=== PATIENT | female | born 2000 | race Caucasian/White ===

== ENCOUNTER 2020-04-28 11:51 | Inpatient (IN) | payer MEDICAID ==
[~2020-04-28] VITALS: Ht 154.9 cm; Wt 82.6 kg
[2020-04-28] MEDS: DEXT 5%/LR + PITOCIN 20UNITS/L 1,000 ML IV SCH ×2 (05:42→21:43)
[2020-04-28] MEDS ORDERED: METHYLERGONOVINE MALEATE 0.2 MG/ML IM PRN (14:15)
[2020-04-28] MEDS ORDERED: NALOXONE HCL 0.4 MG/ML 1ML VIAL IM PRN (14:15)
[2020-04-28 14:34] LABS: BASOPHILS % 0.2 % (0.0-2.0); EOSINOPHILS % 0.2 % (0.0-5.0); HEMATOCRIT. 31.9 % (36.0-48.0); HEMOGLOBIN. 10.7 g/dL (12.0-16.0); LYMPHOCYTES % 15.8 % (20.0-50.0); MEAN CORPUSCULAR HEMOGLOBIN 28.7 pg (28.0-32.0); MEAN CORPUSCULAR VOLUME 85.7 fL (81.0-99.0); MEAN PLATELET VOLUME 9.5 fl (7.4-10.4); MONOCYTES % 4.7 % (2.0-8.0); NEUTROPHILS % 79.1 % (40.0-76.0); PLATELET 136 x1000/uL (130-400); RED BLOOD CELL COUNT 3.73 mill/uL (4.2-5.4); RED CELL DISTRIBUTION WIDTH 17.1 % (11.6-14.6)
[2020-04-28 14:41] LABS: INR 0.9; PARTIAL THROMBOPLASTIN TIME 26.7 sec (23.4-31.0); PROTHROMBIN TIME 9.8 sec (9.6-11.0)
[2020-04-28] MEDS ORDERED: CITRIC ACID/SODIUM CITRATE SOLN 30ML UDC PO NR (15:00)
[2020-04-28 15:08] LABS: HEPATITIS B SURFACE ANTIGEN NEGATIVE
[2020-04-28] MEDS ORDERED: MORPHINE SULFATE/PF 1MG/ML 10ML AMP ONE (15:20)
[2020-04-28] MEDS ORDERED: ONDANSETRON HCL 4MG/2ML INJ ONE (15:20)
[2020-04-28] MEDS ORDERED: GLYCOPYRROLATE 0.2 MG/ML 2ML VIAL ONE (15:20)
[2020-04-28] MEDS ORDERED: OXYTOCIN 10 UNITS/ML 1ML ONE (15:20)
[2020-04-28] MEDS ORDERED: CEFAZOLIN SODIUM 1000MG/VIAL ONE (15:20)
[2020-04-28] MEDS ORDERED: FENTANYL CITRATE/PF 50MCG/ML 2ML VIAL ONE (15:20)
[2020-04-28] MEDS: LACTATED RINGERS 1,000 ML IV SCH ×2 (16:21→17:48)
[2020-04-28 16:57] LABS: CLARITY URINE CLEAR (CLEAR); COLOR URINE YELLOW (YELLOW); KETONES URINE NEGATIVE (NEGATIVE); LEUKOCYTE ESTERASE URINE NEGATIVE (NEGATIVE); NITRITE URINE NEGATIVE (NEGATIVE); OCCULT BLOOD URINE NEGATIVE (NEGATIVE); PROTEIN URINE NEGATIVE (NEGATIVE); SPECIFIC GRAVITY URINE 1.005 (1.005-1.030); UROBILINOGEN URINE 0.2 E.U./dL (0.2-1.0)
[2020-04-28 17:10] LABS: *AMPHETAMINES SCREEN URINE NEGATIVE (NEGATIVE); *BARBITURATES SCREEN URINE NEGATIVE (NEGATIVE)
[2020-04-28 17:11] LABS: *BENZODIAZEPINES SCREEN URINE NEGATIVE (NEGATIVE); *COCAINE SCREEN URINE NEGATIVE (NEGATIVE); METHADONE URINE SCREEN NEGATIVE (NEGATIVE); OPIATES URINE SCREEN NEGATIVE (NEGATIVE); PHENCYCLIDINE URINE SCREEN NEGATIVE (NEGATIVE)
[2020-04-28 17:12] LABS: CANNABINOID URINE SCREEN NEGATIVE (NEGATIVE)
[2020-04-28] MEDS ORDERED: KETOROLAC 60MG/2ML VIAL IM ONE (19:59)
[2020-04-28] MEDS ORDERED: DIPHENHYDRAMINE 50MG/ML VIAL ONE (19:59)
[2020-04-28] MEDS ORDERED: DEXT 5%/LR + PITOCIN 20UNITS/L 1,000 ML IV SCH (20:17)
[2020-04-28] MEDS ORDERED: RHO(D) IMMUNE GLOBULIN 300 MCG/SYR IM PRN (20:30)
[2020-04-28] MEDS ORDERED: HEMORRHOIDAL SUPP PR PRN (20:30)
[2020-04-28] MEDS ORDERED: BISACODYL 10MG SUPP PR PRN (20:30)
[2020-04-28] MEDS ORDERED: ACETAMINOPHEN WITH CODEINE 300/30MG TABLET PO PRN (20:30)
[2020-04-28] MEDS ORDERED: ONDANSETRON HCL 4MG/2ML INJ IV PRN (20:30)
[2020-04-28] MEDS ORDERED: LANOLIN OINT 7GM TUBE TOP PRN (20:30)
[2020-04-28] MEDS ORDERED: IBUPROFEN 400MG TABLET PO PRN (20:30)
[2020-04-28] MEDS ORDERED: HYDROCODONE/ACETAMINOPHEN 5/325MG TABLET PO PRN (20:30)
[2020-04-28] MEDS ORDERED: DIPHENHYDRAMINE 50MG/ML VIAL IV PRN (20:45)
[2020-04-28] MEDS ORDERED: BUTORPHANOL TARTRATE 2 MG/ML VIAL IV PRN (20:45)
[2020-04-28] MEDS ORDERED: NALOXONE HCL 0.4 MG/ML 1ML VIAL IV PRN (20:45)
[2020-04-28] MEDS ORDERED: DIPHENHYDRAMINE 25MG CAPSULE PO PRN (21:00)
[2020-04-28] MEDS ORDERED: DOCUSATE SODIUM 100MG CAPSULE PO SCH (21:00)
[2020-04-28] MEDS: MAGNESIUM/ALUMINUM HYDROXIDE/SIMETHICONE 30ML UDC PO SCH (21:00)
[2020-04-28 22:50] VITALS: BP 105/62
[2020-04-28 23:20] VITALS: BP 104/59
[2020-04-29 00:20] VITALS: BP 110/64
[2020-04-29 04:20] VITALS: BP 98/53
[2020-04-29] MEDS: KETOROLAC 30MG/ML VIAL IV SCH ×2 (05:38→12:15)
[2020-04-29 06:18] LABS: BASOPHILS % 0.2 % (0.0-2.0); EOSINOPHILS % 0.2 % (0.0-5.0); HEMATOCRIT. 24.2 % (36.0-48.0); LYMPHOCYTES % 18.3 % (20.0-50.0); MEAN CORPUSCULAR HEMOGLOBIN 28.5 pg (28.0-32.0); MEAN CORPUSCULAR VOLUME 86.4 fL (81.0-99.0); MEAN PLATELET VOLUME 9.7 fl (7.4-10.4); NEUTROPHILS % 75.3 % (40.0-76.0); PLATELET 97 x1000/uL (130-400); RED BLOOD CELL COUNT 2.81 mill/uL (4.2-5.4); RED CELL DISTRIBUTION WIDTH 17.7 % (11.6-14.6)
[2020-04-29] MEDS: MAGNESIUM/ALUMINUM HYDROXIDE/SIMETHICONE 30ML UDC PO SCH ×4 (07:30→21:12)
[2020-04-29] MEDS: SIMETHICONE 80MG TABLET CHEW PO SCH ×5 (08:00→21:14)
[2020-04-29 08:41] VITALS: BP 100/56
[2020-04-29] MEDS: FERROUS SULFATE 325MG TABLET PO SCH ×3 (09:45→17:53)
[2020-04-29] MEDS: PRENATAL VIT/FE FUMARATE/FA TABLET PO SCH (09:45)
[2020-04-29] MEDS ORDERED: BUTORPHANOL TARTRATE 2 MG/ML VIAL ONE (11:07)
[2020-04-29 14:59] VITALS: BP 96/58
[2020-04-29 22:00] VITALS: BP 101/59
[2020-04-30 06:00] VITALS: BP 103/61
[2020-04-30 06:48] LABS: BASOPHILS % 0.2 % (0.0-2.0); EOSINOPHILS % 0.5 % (0.0-5.0); HEMATOCRIT. 25.2 % (36.0-48.0); HEMOGLOBIN. 8.5 g/dL (12.0-16.0); LYMPHOCYTES % 16.8 % (20.0-50.0); MEAN CORPUSCULAR HEMOGLOBIN 28.8 pg (28.0-32.0); MEAN CORPUSCULAR VOLUME 85.7 fL (81.0-99.0); MEAN PLATELET VOLUME 9.6 fl (7.4-10.4); MONOCYTES % 4.9 % (2.0-8.0); NEUTROPHILS % 77.6 % (40.0-76.0); PLATELET 126 x1000/uL (130-400); RED BLOOD CELL COUNT 2.94 mill/uL (4.2-5.4); RED CELL DISTRIBUTION WIDTH 17.2 % (11.6-14.6)
[2020-04-30 07:46] VITALS: BP 109/62
[2020-04-30] MEDS: FERROUS SULFATE 325MG TABLET PO SCH (09:02)
[2020-04-30] MEDS: MAGNESIUM/ALUMINUM HYDROXIDE/SIMETHICONE 30ML UDC PO SCH (09:02)
[2020-04-30] MEDS: SIMETHICONE 80MG TABLET CHEW PO SCH (09:02)
[2020-04-30] MEDS: PRENATAL VIT/FE FUMARATE/FA TABLET PO SCH (09:02)
== END 2020-04-30 12:40 | disposition home or self-care (01) | DRG 540 ==
LOC: 8 EST LDRP 11:51 → OBSVTOIN 11:51 → 8 EST LDRP 18:51 → 8EST 22:48
PROVIDERS: ADMIT Obstetrics & Gynecology; ATTEND Obstetrics & Gynecology
PROC: 10D00Z1 Extraction of Products of Conception, Low, Open Approach (ICD-10-PCS; principal; 2020-04-28)
DX: O34.211 Maternal care for low transverse scar from previous cesarean delivery (principal); D64.9 Anemia, unspecified; O77.0 Labor and delivery complicated by meconium in amniotic fluid; O99.02 Anemia complicating childbirth; O42.92 Full-term premature rupture of membranes, unspecified as to length of time between rupture and onset of labor; Z37.0 Single live birth; Z3A.39 39 weeks gestation of pregnancy
CPT/HCPCS: 36415; 76805; 76818; 80305; 81003; 85025; 86592; 86703; 86762; 86850; 86900; 87340; 88307; 99281; J0595; J0690; J1200; J1885; J2274; J2405; J2590; J3010; J3490; J7120

== ENCOUNTER 2022-07-21 10:57 | Inpatient (IN) | payer OTHER ==
[~2022-07-21] VITALS: Ht 154.9 cm; Wt 86.6 kg
[2022-07-21] MEDS ORDERED: CARBOPROST TROMETHAMINE 250 MCG/ML AMPUL IM PRN (12:15)
[2022-07-21] MEDS ORDERED: RHO(D) IMMUNE GLOBULIN 300 MCG/SYR IM NR (12:15)
[2022-07-21] MEDS ORDERED: MORPHINE SULFATE/PF 1MG/ML 10ML AMP ONE (12:30)
[2022-07-21] MEDS ORDERED: ONDANSETRON HCL 4MG/2ML INJ ONE (12:30)
[2022-07-21] MEDS ORDERED: DEXAMETHASONE 4MG/ML 1ML VIAL ONE (12:30)
[2022-07-21] MEDS ORDERED: CEFAZOLIN SODIUM 1000MG/VIAL ONE ×2 (12:30→12:36)
[2022-07-21] MEDS ORDERED: OXYTOCIN 10 UNITS/ML 1ML ONE ×2 (12:30→12:36)
[2022-07-21 13:06] LABS: BASOPHILS % 0.3 % (0.0-2.0); EOSINOPHILS % 0.2 % (0.0-5.0); HEMATOCRIT. 34.2 % (36.0-48.0); HEMOGLOBIN. 10.8 g/dL (12.0-16.0); LYMPHOCYTES % 26.4 % (20.0-50.0); MEAN CORPUSCULAR HEMOGLOBIN 27.4 pg (28.0-32.0); MEAN CORPUSCULAR VOLUME 86.5 fL (81.0-99.0); MEAN PLATELET VOLUME 9.5 fl (7.4-10.4); MONOCYTES % 4.5 % (2.0-8.0); NEUTROPHILS % 68.6 % (40.0-76.0); PLATELET 138 x1000/uL (130-400); RED BLOOD CELL COUNT 3.95 mill/uL (4.2-5.4); RED CELL DISTRIBUTION WIDTH 17.9 % (11.6-14.6)
[2022-07-21 13:08] LABS: CLARITY URINE CLOUDY (CLEAR); COLOR URINE ORANGE (YELLOW); KETONES URINE NEGATIVE (NEGATIVE); LEUKOCYTE ESTERASE URINE 3+ (NEGATIVE); NITRITE URINE NEGATIVE (NEGATIVE); OCCULT BLOOD URINE NEGATIVE (NEGATIVE); PH URINE 6.5 (4.5-8.0); PROTEIN URINE TRACE (NEGATIVE); SPECIFIC GRAVITY URINE 1.017 (1.005-1.030); UROBILINOGEN URINE 0.2 E.U./dL (0.2-1.0)
[2022-07-21 13:16] LABS: INR 0.9; PARTIAL THROMBOPLASTIN TIME 26.7 sec (23.4-31.0); PROTHROMBIN TIME 10.2 sec (9.6-11.0)
[2022-07-21] MEDS: LACTATED RINGERS 1,000 ML IV SCH ×2 (13:17→13:49)
[2022-07-21 13:23] LABS: *AMPHETAMINES SCREEN URINE NEGATIVE (NEGATIVE); *BARBITURATES SCREEN URINE NEGATIVE (NEGATIVE); *BENZODIAZEPINES SCREEN URINE NEGATIVE (NEGATIVE); *COCAINE SCREEN URINE NEGATIVE (NEGATIVE); CANNABINOID URINE SCREEN NEGATIVE (NEGATIVE); METHADONE URINE SCREEN NEGATIVE (NEGATIVE); OPIATES URINE SCREEN NEGATIVE (NEGATIVE); PHENCYCLIDINE URINE SCREEN NEGATIVE (NEGATIVE)
[2022-07-21] MEDS ORDERED: KETOROLAC 60MG/2ML VIAL IM ONE (13:48)
[2022-07-21] MEDS ORDERED: HEMORRHOIDAL SUPP PR PRN (14:15)
[2022-07-21] MEDS ORDERED: LANOLIN OINT 7GM TUBE TOP PRN (14:15)
[2022-07-21] MEDS ORDERED: ONDANSETRON HCL 4MG/2ML INJ IV PRN (14:15)
[2022-07-21] MEDS ORDERED: RHO(D) IMMUNE GLOBULIN 300 MCG/SYR IM PRN (14:15)
[2022-07-21] MEDS ORDERED: BISACODYL 10MG SUPP PR PRN (14:15)
[2022-07-21] MEDS ORDERED: ACETAMINOPHEN WITH CODEINE 300/30MG TABLET PO PRN (14:15)
[2022-07-21] MEDS ORDERED: DIPHENHYDRAMINE 25MG CAPSULE PO PRN (14:15)
[2022-07-21] MEDS ORDERED: OXYTOCIN 30 UNITS/500ML NS PMX 500 ML IV SCH (14:15)
[2022-07-21] MEDS ORDERED: IBUPROFEN 400MG TABLET PO PRN (14:15)
[2022-07-21 14:21] LABS: HEPATITIS B SURFACE ANTIGEN NEGATIVE
[2022-07-21] MEDS ORDERED: PROPOFOL 200MG/20ML VIAL IV ONE (14:21)
[2022-07-21] MEDS ORDERED: MORPHINE SULFATE 2 MG/ML CPJ (NOT FOR IM USE) IV PRN (15:00)
[2022-07-21] MEDS ORDERED: NALOXONE HCL 0.4 MG/ML 1ML VIAL IV PRN (15:00)
[2022-07-21] MEDS ORDERED: KETOROLAC 30MG/ML VIAL IV PRN (15:00)
[2022-07-21] MEDS ORDERED: FENTANYL CITRATE/PF 50MCG/ML 2ML VIAL IV PRN (15:00)
[2022-07-21 17:25] VITALS: BP 111/60
[2022-07-21 18:00] VITALS: BP 108/59
[2022-07-21] MEDS ORDERED: NALOXONE HCL 0.4MG/ML VIAL IV PRN (18:45)
[2022-07-21 20:00] VITALS: BP 100/49
[2022-07-21] MEDS ORDERED: DOCUSATE SODIUM 100MG CAPSULE PO SCH (21:00)
[2022-07-22 04:00] VITALS: BP 98/46
[2022-07-22 06:56] LABS: HEMATOCRIT. 27.8 % (36.0-48.0); HEMOGLOBIN. 9.1 g/dL (12.0-16.0); LYMPHOCYTES % 19.8 % (20.0-50.0); MEAN CORPUSCULAR HEMOGLOBIN 28.2 pg (28.0-32.0); MEAN CORPUSCULAR VOLUME 85.9 fL (81.0-99.0); MEAN PLATELET VOLUME 9.7 fl (7.4-10.4); MONOCYTES % 6.6 % (2.0-8.0); NEUTROPHILS % 73.6 % (40.0-76.0); PLATELET 128 x1000/uL (130-400); RED BLOOD CELL COUNT 3.23 mill/uL (4.2-5.4); RED CELL DISTRIBUTION WIDTH 17.4 % (11.6-14.6)
[2022-07-22 08:00] VITALS: BP 95/45
[2022-07-22] MEDS: MAGNESIUM/ALUMINUM HYDROXIDE/SIMETHICONE 30ML UDC PO SCH ×4 (10:41→20:47)
[2022-07-22] MEDS: FERROUS SULFATE 325MG TABLET PO SCH ×3 (10:41→18:15)
[2022-07-22] MEDS: PRENATAL VIT/FE FUMARATE/FA TABLET PO SCH (10:42)
[2022-07-22] MEDS: SIMETHICONE 80MG TABLET CHEW PO SCH ×4 (10:42→20:47)
[2022-07-22] MEDS: IBUPROFEN 800MG TABLET PO PRN ×2 (13:00→20:46)
[2022-07-22 16:00] VITALS: BP 85/44
[2022-07-22 20:00] VITALS: BP 98/50
[2022-07-23 04:00] VITALS: BP 116/53
[2022-07-23] MEDS: IBUPROFEN 800MG TABLET PO PRN (05:31)
[2022-07-23 08:00] VITALS: BP 101/53
[2022-07-23] MEDS: SIMETHICONE 80MG TABLET CHEW PO SCH (08:00)
[2022-07-23] MEDS: FERROUS SULFATE 325MG TABLET PO SCH (09:22)
[2022-07-23] MEDS: PRENATAL VIT/FE FUMARATE/FA TABLET PO SCH (09:22)
[2022-07-23] MEDS: MAGNESIUM/ALUMINUM HYDROXIDE/SIMETHICONE 30ML UDC PO SCH (09:22)
== END 2022-07-23 14:30 | disposition home or self-care (01) | DRG 540 ==
LOC: 8 EST LDRP 10:57 → OBSVTOIN 10:57 → 8EST 18:32
PROVIDERS: ADMIT Obstetrics & Gynecology; ATTEND Obstetrics & Gynecology
PROC: 10D00Z1 Extraction of Products of Conception, Low, Open Approach (ICD-10-PCS; principal; 2022-07-21)
DX: O34.211 Maternal care for low transverse scar from previous cesarean delivery (principal); D62 Acute posthemorrhagic anemia; D69.6 Thrombocytopenia, unspecified; Z20.822 Contact with and (suspected) exposure to COVID-19; O99.12 Other diseases of the blood and blood-forming organs and certain disorders involving the immune mechanism complicating childbirth; Z37.0 Single live birth; Z3A.38 38 weeks gestation of pregnancy
CPT/HCPCS: 36415; 80305; 81003; 85025; 86592; 86703; 86762; 86850; 86900; 87340; 87426; 88307; 99281; J0690; J1100; J1885; J2274; J2405; J2704